=== PATIENT | male | born 1990 | race Caucasian/White ===

== ENCOUNTER 2019-04-28 04:10 | Emergency (ER) | payer OTHER ==
[~2019-04-28] VITALS: Ht 175.3 cm; Wt 79.5 kg
[2019-04-28] MEDS ORDERED: bacitracin 15gm ointment TP ONE (04:20)
[2019-04-28] MEDS ORDERED: acetaminophen 325mg tablet PO ONE (04:20)
[2019-04-28] MEDS ORDERED: AMOX-422 PO (04:25)
[2019-04-28 04:40] VITALS: BP 141/89
== END 2019-04-28 04:47 ==
LOC: ER 04:12
DX: S71.031A Puncture wound without foreign body, right hip, initial encounter (principal); S70.211A Abrasion, right hip, initial encounter; Z79.899 Other long term (current) drug therapy; W54.0XXA Bitten by dog, initial encounter; Y93.89 Activity, other specified; Y92.89 Other specified places as the place of occurrence of the external cause; Y99.8 Other external cause status
CPT/HCPCS: 99283